=== PATIENT | male | born 1990 | race Caucasian/White ===

== ENCOUNTER 2022-04-21 22:03 | Emergency (ER) | payer SELFPAY ==
[~2022-04-21] VITALS: Ht 167.6 cm; Wt 134.3 kg
[2022-04-21] MEDS ORDERED: ASPIRIN 81 MG TAB.CHEW ONE (22:27)
[2022-04-21] MEDS ORDERED: ASPIRIN 81 MG TAB.CHEW PO ONE (22:30)
--- NOTE | 2022-04-21 22:32 | NUR ---
SEEN AND EXAMINED BY DR. PADILLA
[2022-04-21] MEDS ORDERED: IBUPROFEN 600 MG TABLET PO ONE (22:45)
[2022-04-21] MEDS ORDERED: IBUPROFEN 600 MG TABLET ONE (22:45)
[2022-04-21 22:57] LABS: MEAN CORPUSCULAR HEMOGLOBIN 30.7 uug (23.8-33.4); MEAN CORPUSCULAR VOLUME 91.8 fL (73.0-96.2); PLATELET COUNT (AUTO) 415 K/uL (152-348)
[2022-04-21 23:20] LABS: CARBON DIOXIDE 25 mmol/L (21-32); CHLORIDE 102 mmol/L (98-107); CREATININE 0.9 mg/dL (0.6-1.3); GLUCOSE 90 mg/dL (74-106); POTASSIUM 3.7 mmol/L (3.5-5.1); UREA NITROGEN, BLOOD 11 mg/dL (7-18)
[2022-04-21 23:37] LABS: ALANINE AMINOTRANSFERASE 36 U/L (16-63); ALKALINE PHOSPHATASE 77 U/L (50-136); ASPARTATE AMINOTRANSFERASE 16 U/L (15-37); BILIRUBIN,DIRECT 0.1 mg/dL (0.0-0.2); BILIRUBIN,TOTAL 0.6 mg/dL (0.2-1.0); TOTAL PROTEIN, SERUM 7.7 g/dL (6.4-8.2)
[2022-04-22 00:21] VITALS: BP 120/80
--- NOTE | 2022-04-22 00:21 | NUR ---
Patient discharged to home in stable condition. Written and verbal after care instructions given. Patient verbalizes understanding of instructions. Stressed follow up or return to ER for worsening s/s.
== END 2022-04-22 00:24 | disposition home or self-care (01) ==
LOC: ER 22:07
DX: R07.9 Chest pain, unspecified (principal); E66.9 Obesity, unspecified; Z68.42 Body mass index [BMI] 45.0-49.9, adult
CPT/HCPCS: 36415; 71045; 84484; 85025; 93005; A4663